=== PATIENT | female | born 1950 | race Caucasian/White ===

== ENCOUNTER 2021-02-16 06:22 | Observation (INO) ==
[2021-02-16] MEDS ORDERED: CeFAZolin Syr 2,000MG/20 ML 2,000 MG/20 ML SYRINGE IVPB ONE (06:46)
[2021-02-16] MEDS ORDERED: Ringers Solution, Lactated 1,000 ML IVC SCH ×2 (07:00→16:40)
[2021-02-16] MEDS ORDERED: Lidocaine HCL 4 ML Topical Solution (Laryng-O-Jet Kit Sterile Pak) TP ONE (07:28)
[2021-02-16] MEDS ORDERED: *HR* Succinylcholine 200 MG/10 ML VIAL IVP ONE ×2 (07:30→13:42)
[2021-02-16] MEDS ORDERED: *HR* FentaNYL (PF) 100 MCG/2 ML VIAL ONE (07:30)
[2021-02-16] MEDS ORDERED: *HR* Rocuronium Bromide 50 MG/5 ML VIAL ONE ×2 (07:30→13:42)
[2021-02-16] MEDS ORDERED: *HR* Propofol 200 MG/20 ML VIAL IVP ONE (07:30)
[2021-02-16] MEDS ORDERED: Pregabalin 75 MG CAPSULE PO ONE (07:30)
[2021-02-16] MEDS ORDERED: Ondansetron 4 MG/2 ML VIAL ONE ×2 (07:30→13:42)
[2021-02-16] MEDS ORDERED: *HR* Midazolam HCl 2 MG/2 ML VIAL ONE (07:30)
[2021-02-16] MEDS ORDERED: Lidocaine -MPF 2% 5 ML VIAL ONE ×2 (07:30→13:42)
[2021-02-16] MEDS ORDERED: Famotidine 20 MG TABLET PO ONE (07:30)
[2021-02-16] MEDS ORDERED: *HR* Remifentanil 2 MG VIAL IVP ONE (07:31)
[2021-02-16] MEDS ORDERED: Ipratropium/Albuterol Neb 3 ML AER ONE (07:38)
[2021-02-16] MEDS ORDERED: Heparin 1,000 UNITS/500 mL 500 ML ONE (08:03)
[2021-02-16] MEDS ORDERED: Clindamycin 900 MG/50 ML 900 MG/50 ML IV.SOLN IVPB ONE ×3 (08:09→08:45)
[2021-02-16] MEDS ORDERED: dexmedeTOMIDine in 0.9 % NaCL 80 MCG/20 ML MLS ONE (08:12)
[2021-02-16] MEDS ORDERED: *HR* Vasopressin 20 UNIT/ML VIAL ONE (08:12)
[2021-02-16] MEDS ORDERED: Polymyxin B Sulfate 500,000 UNIT, Sodium Chloride IRRigation 1,000 ML IR ONE (08:15)
[2021-02-16] MEDS ORDERED: EPHEDrine 50 MG/ML VIAL ONE (08:39)
[2021-02-16] MEDS ORDERED: Ondansetron 4 MG/2 ML VIAL IVP PRN ×2 (08:56→16:40)
[2021-02-16] MEDS ORDERED: *HR* OxyCODONE Immed Rel 5 MG TABLET PO PRN (08:56)
[2021-02-16] MEDS ORDERED: *HR* HYDROmorphone PF 0.5 MG/0.5 ML SYRINGE IVP PRN (08:56)
[2021-02-16] MEDS ORDERED: Clindamycin 600 MG/50 ML 600 MG/50 ML IV.SOLN IVPB ONE (09:54)
[2021-02-16] MEDS ORDERED: Ringers Solution, Lactated 1,000 ML ONE (10:01)
[2021-02-16] MEDS ORDERED: Clindamycin 300 MG/50 ML 300 MG/50 ML IV.SOLN IVPB ONE (10:03)
[2021-02-16] MEDS ORDERED: *HR* Remifentanil 1 MG VIAL IVP ONE ×2 (11:00→12:19)
[2021-02-16] MEDS ORDERED: Vancomycin 1,000 MG VIAL ONE (11:57)
[2021-02-16] MEDS ORDERED: Ketorolac 30 MG/ML VIAL ONE (12:46)
[2021-02-16] MEDS ORDERED: *HR* HYDROMORPHONE 2 MG/ML VIAL ONE (12:47)
[2021-02-16 13:12] LABS: ABG Base Excess -2 mEq/L (-2 to 3); ABG Chloride 104 mEq/L (98-107); ABG Glucose 157 mg/dL (60-95); ABG HCO3 26 mEq/L (21-27); ABG Ionized Calcium 1.16 mmol/L (1.15-1.35); ABG Oxygen Saturation 97 % (95-98); ABG PCO2 56 mmHg (35-45); ABG PH 7.28 pH Units (7.32-7.45); ABG PO2 108 mmHg (85-104); ABG TCO2 28 mEq/L (20-26)
[2021-02-16] MEDS ORDERED: Albuterol Neb 1.25 MG/3 ML VIAL IH ONE (13:22)
[2021-02-16] MEDS ORDERED: INSULIN HUMAN REGULAR IV ONE (13:25)
[2021-02-16] MEDS ORDERED: SODIUM CHLORIDE 0.9% IV ONE (13:25)
[2021-02-16] MEDS ORDERED: Albuterol 2.5 MG/3 ML NEBULIZER ONE (13:38)
[2021-02-16] MEDS ORDERED: Insulin Regular, Human 100 UNIT/ML ONE (13:38)
[2021-02-16] MEDS ORDERED: Acetaminophen IV 1,000 MG/100 ML BAG IVPB ONE (15:52)
[2021-02-16] MEDS ORDERED: Acetaminophen 325 MG TABLET PO PRN (16:40)
[2021-02-16] MEDS ORDERED: Naloxone 0.4 MG/ML INJ IVP PRN (16:40)
[2021-02-16] MEDS: *HR* OxyCODONE Immed Rel 5 MG TABLET PO PRN ×2 (17:11→21:58)
[2021-02-16] MEDS: Clindamycin 900 MG/50 ML 900 MG/50 ML IV.SOLN IVPB SCH (17:11)
[2021-02-17] MEDS: Clindamycin 900 MG/50 ML 900 MG/50 ML IV.SOLN IVPB SCH (00:28)
[2021-02-17] MEDS: *HR* HYDROcodone/Acet 5/325 mg TABLET PO PRN ×2 (00:33→16:42)
[2021-02-17] MEDS: *HR* OxyCODONE Immed Rel 5 MG TABLET PO PRN ×4 (03:28→21:25)
[2021-02-17 12:16] LABS: Basophils % 0.4 %; Eosinophils % 0.3 %; Hematocrit 38.8 % (35.3-44.9); Hemoglobin 12.7 g/dL (11.5-15.4); Immature Granulocytes % 0.6 % (0-4); Lymphocytes % 29.2 %; Mean Corpuscular HGB Conc 32.7 g/dL (31.6-35.5); Mean Corpuscular Hemoglobin 33.2 pg (28.0-33.3); Mean Corpuscular Volume 101.6 fL (83.0-100.0); Mean Platelet Volume 9.7 fL (9.4-12.4); Monocytes # 1.1 K/mcL (0.0-1.3); Monocytes % 10.8 %; Platelet Count 167 K/mcL (140-400); Red Blood Count 3.82 M/mcL (3.82-4.97); Segmented Neutrophils % 58.7 %; White Blood Count 10.2 K/mcL (4.3-11.1)
[2021-02-17] MEDS ORDERED: Dextrose Gel 15 GM/37.5 ML TUBE PO PRN ×2 (12:42)
[2021-02-17] MEDS ORDERED: *HR* Dextrose 50 % in Water (Syg) 50 ML SYRINGE IVP PRN (12:42)
[2021-02-17] MEDS ORDERED: D5% in Water 1,000 ML IVC PRN (12:42)
[2021-02-17] MEDS: Loratadine 10 MG TABLET PO SCH (13:53)
[2021-02-17] MEDS: Insulin LISPRO 300 UNITS/3 ML VIAL SUBQ SCH ×2 (16:43→21:26)
[2021-02-17] MEDS: tiZANidine 4 MG TABLET PO PRN (21:24)
[2021-02-17] MEDS: Budesonide/Formoterol 160/4.5 1 PUFF INH IH SCH (21:25)
[2021-02-17] MEDS: diazePAM 5 MG TABLET PO PRN (23:01)
[2021-02-18] MEDS: *HR* OxyCODONE Immed Rel 5 MG TABLET PO PRN ×5 (02:56→22:17)
[2021-02-18] MEDS: diazePAM 5 MG TABLET PO PRN ×2 (06:17→17:03)
[2021-02-18] MEDS: Insulin LISPRO 300 UNITS/3 ML VIAL SUBQ SCH ×4 (08:15→22:17)
[2021-02-18] MEDS: Isosorbide MONOnitrate (24 HR) 30 MG TAB.ER.24H PO SCH (08:21)
[2021-02-18] MEDS: Budesonide/Formoterol 160/4.5 1 PUFF INH IH SCH ×2 (08:21→22:18)
[2021-02-18] MEDS: Furosemide 40 MG TABLET PO SCH (08:22)
[2021-02-18] MEDS: Loratadine 10 MG TABLET PO SCH (08:22)
[2021-02-18] MEDS: Metoprolol XL (24 HR) Succ 50 MG TAB.ER.24H PO SCH (08:22)
[2021-02-18] MEDS: Aspirin 81 MG TAB.CHEW PO SCH (08:22)
[2021-02-18] MEDS: Gabapentin 300 MG CAPSULE PO SCH (08:22)
[2021-02-18] MEDS: tiZANidine 4 MG TABLET PO PRN (08:27)
[2021-02-18] MEDS: Tiotropium 10 INH DOSE IH SCH (08:27)
[2021-02-18] MEDS ORDERED: tiZANidine 4 MG TABLET PO PRN (09:20)
[2021-02-18 11:23] LABS: Basophils % 0.4 %; Eosinophils % 0.4 %; Hematocrit 39.8 % (35.3-44.9); Hemoglobin 13.1 g/dL (11.5-15.4); Immature Granulocytes % 0.6 % (0-4); Lymphocytes % 18.8 %; Mean Corpuscular HGB Conc 32.9 g/dL (31.6-35.5); Mean Corpuscular Hemoglobin 32.9 pg (28.0-33.3); Mean Platelet Volume 9.8 fL (9.4-12.4); Monocytes # 0.9 K/mcL (0.0-1.3); Monocytes % 8.1 %; Neutrophils # 7.5 K/mcL (1.6-8.9); Platelet Count 172 K/mcL (140-400); Red Blood Count 3.98 M/mcL (3.82-4.97); Red Cell Distribution Width 12.7 % (11.5-14.5); Segmented Neutrophils % 71.7 %; White Blood Count 10.5 K/mcL (4.3-11.1)
[2021-02-18 11:54] LABS: Alanine Aminotransferase 11 Units/L (7-52); Albumin 3.5 g/dL (3.5-5.7); Albumin/Globulin Ratio 1.2 (1.1-2.2); Alkaline Phosphatase 58 Units/L (34-104); Aspartate Amino Transferase 22 Units/L (13-39); BUN/Creatinine Ratio 13 (6-26); Bilirubin,Total 0.7 mg/dL (0.3-1.0); Blood Urea Nitrogen 9 mg/dL (8-23); Calcium 8.7 mg/dL (8.6-10.3); Carbon Dioxide 30 mEq/L (23-29); Chloride 99 mEq/L (98-107); Glucose 176 mg/dL (70-105); Osmolality,Calculated 285 (280-300); Potassium 3.9 mEq/L (3.5-5.1); Sodium 136 mEq/L (136-145); Total Protein 6.5 g/dL (6.4-8.9); eGFR For African Americans > 60 (> 60); eGFR For Non-African Americans > 60 (> 60)
[2021-02-19 04:18] LABS: Bilirubin,Urine Negative (Negative); Blood,Urine Small (Negative); Clarity,Urine Clear (Clear); Color,Urine Yellow (Yellow); Glucose,Urine (UA) Normal (Normal); Ketones,Urine Negative (Negative); Leukocyte Esterase,Urine Negative (Negative); Mucus,Urine Few per lpf (None-Few); Nitrite,Urine Negative (Negative); PH,Urine 6.5 pH Units (5.0-8.0); Protein,Urine Trace mg/dL (Neg-Trace); Specific Gravity,Urine 1.023 (1.010-1.025); Squamous Epithelial Cell,Urine Moderate per hpf (None-Few); Urobilinogen,Urine Normal (Normal)
[2021-02-19] MEDS: *HR* OxyCODONE Immed Rel 5 MG TABLET PO PRN ×2 (05:18→10:45)
[2021-02-19] MEDS: Furosemide 40 MG TABLET PO SCH (08:27)
[2021-02-19] MEDS: diazePAM 5 MG TABLET PO PRN (08:27)
[2021-02-19] MEDS: Isosorbide MONOnitrate (24 HR) 30 MG TAB.ER.24H PO SCH (08:29)
[2021-02-19] MEDS: Metoprolol XL (24 HR) Succ 50 MG TAB.ER.24H PO SCH (08:29)
[2021-02-19] MEDS: Gabapentin 300 MG CAPSULE PO SCH (08:29)
[2021-02-19] MEDS: Loratadine 10 MG TABLET PO SCH (08:29)
[2021-02-19] MEDS: Aspirin 81 MG TAB.CHEW PO SCH (08:29)
[2021-02-19] MEDS: Insulin LISPRO 300 UNITS/3 ML VIAL SUBQ SCH ×2 (09:06→11:45)
[2021-02-19] MEDS: Tiotropium 10 INH DOSE IH SCH (09:09)
[2021-02-19] MEDS: Budesonide/Formoterol 160/4.5 1 PUFF INH IH SCH (09:10)
[2021-02-19 11:36] VITALS: BP 126/73; PULSE 84; TEMP 98.1; O2SAT 94
[2021-02-19 11:37] LABS: Influenza A PCR Negative (Negative); Influenza B PCR Negative (Negative); Resp. Syncytial Virus PCR Negative (Negative); SARS-CoV-2 by PCR (In House) Negative (Negative)
== END 2021-02-19 12:58 ==
LOC: 4WAOSI 06:22 → SDCAOSI 06:22 → 4WAOSI 16:28
PROVIDERS: ADMIT Orthopaedic Surgery Orthopaedic Surgery of the Spine; ATTEND Orthopaedic Surgery Orthopaedic Surgery of the Spine